=== PATIENT | male | born 1935 | race Caucasian/White ===

== ENCOUNTER → 2017-10-12 11:36 | Outpatient (CLI) | payer MEDICARE, OTHER, SELFPAY ==
[2017-10-12 12:53] LABS: Albumin 4.6 g/dL (3.5-5.0); BUN Creatinine Ratio 14.1 (6-22); Blood Urea Nitrogen 24 mg/dL (9-20); Calcium 9.8 mg/dL (8.4-10.2); Carbon Dioxide 20 mmol/L (22-32); Chloride 111 mmol/L (98-107); Estimated Glomerular Filt Rate 39.1 mL/min (>60); Glucose 99 mg/dL (80-110); HEMOLYSIS < 15 (0-50); Potassium 4.9 mmol/L (3.4-5.1); Sodium 145 mmol/L (137-145)
== END ==
PROVIDERS: Visit Provider Internal Medicine Nephrology
DX: N18.3 Chronic kidney disease, stage 3 (moderate) (principal)
CPT/HCPCS: 36415; 80069; 83735